=== PATIENT | female | born 1990 | race Two or more races ===

== ENCOUNTER 2023-11-18 09:37 | Emergency (ER) | payer MEDICAID ==
[~2023-11-18] VITALS: Ht 165.1 cm; Wt 77.3 kg
[2023-11-18 10:00] VITALS: PULSE 44; RESP 12; TEMP 98; O2SAT 100
[2023-11-18 10:37] LABS: Chloride 108 mmol/L (98-107); Potassium 4.6 mmol/L (3.5-5.1); Sodium 140 mmol/L (136-145)
[2023-11-18 10:38] LABS: Anion Gap 3 (5-15); Carbon Dioxide 29 mmol/L (20-30)
[2023-11-18 10:43] LABS: Glucose 96 mg/dL (74-106)
[2023-11-18 10:44] LABS: BUN/Creatinine Ratio 11.3 (10.0-20.0); Basophils # (auto) 0.1 10 ^3/uL (0-0.2); Basophils % (auto) 1.1 % (0.0-2.0); Blood Urea Nitrogen 9 mg/dL (9-23); Eosinophils # (auto) 0.2 10 ^3/uL (0-0.8); Eosinophils % (auto) 2.9 % (0.0-7.0); Hematocrit 38.3 % (36.0-46.0); Hemoglobin 12.9 g/dL (12.2-16.2); Lymphocytes % (auto) 32.1 % (10.0-50.0); Mean Corpuscular Hemoglobin 29.9 pg (28.0-32.0); Mean Corpuscular Hgb Conc. 33.7 g/dL (32.0-36.0); Mean Corpuscular Volume 88.8 fL (80.0-100.0); Monocytes # (auto) 0.4 10 ^3/uL (0-1.3); Monocytes % (auto) 6.3 % (0.0-12.0); Neutrophils # (auto) 3.6 10 ^3/uL (1.6-8.6); Neutrophils % (auto) 57.6 % (37.0-80.0); Nucleated Red Blood Cells % 0.3 %; Red Blood Cells 4.32 10^6/uL (4.0-5.20); Red Cell Distribution Width 11.8 % (11.8-14.3); White Blood Cell 6.2 10^3/uL (4.4-10.8)
[2023-11-18 12:42] LABS: Urine Epithelial Cast None Seen /hpf (<5)
[2023-11-18 13:00] LABS: Urine Bacteria NONE SEEN /hpf (None Seen); Urine Blood Negative /uL (Negative); Urine Clarity Clear (Clear); Urine Color Colorless (Yellow); Urine Hyaline Cast FEW /lpf (0 - 2); Urine Mucus FEW (None Seen); Urine Protein, UAD Negative (Negative); Urine Specific Gravity 1.011 (1.001-1.035); Urine Urobilinogen Normal (Negative); Urine WBC 3 /hpf (0 - 5)
[2023-11-18 14:43] VITALS: BP 115/83; PULSE 54; RESP 18; O2SAT 97
== END 2023-11-18 14:45 | disposition home or self-care (01) ==
LOC: EDBD 09:37 → ER 09:37
DX: R55 Syncope and collapse (principal); R10.2 Pelvic and perineal pain
CPT/HCPCS: 36415; 70450; 80048; 81001; 84702; 85025; 93005